=== PATIENT | female | born 1950 | race Caucasian/White ===

== ENCOUNTER → 2021-03-02 10:02 | Outpatient (CLI) | payer MEDICARE, OTHER, SELFPAY ==
--- NOTE | 2021-03-02 | DI.MG.S_ITS ---
BILATERAL DIGITAL SCREENING MAMMOGRAM 3D/2D WITH CAD: 03/02/2021 CLINICAL: Routine screening. Family history of breast cancer. Comparison is made to exams dated: 12/14/2019 mammogram, 11/27/2018 mammogram, 10/22/2018 mammogram, and 10/09/2017 mammogram - [facility]. The tissue of both breasts is predominantly fatty. Current study was also evaluated with a Computer Aided Detection (CAD) system. There are new grouped fine calcifications in the left breast middle depth lateral region seen on the craniocaudal view only. No other significant masses, calcifications, or other findings are seen in either breast. IMPRESSION: INCOMPLETE: NEEDS ADDITIONAL IMAGING EVALUATION The new grouped fine calcifications in the left breast are indeterminate. Magnification views are recommended. This exam was interpreted at Station ID: [id number]. NOTE: For mammograms, a report in lay terms will be sent to the patient. Approximately 15% of breast malignancies will not be visualized mammographically. In the management of a palpable breast mass, a negative mammogram must not discourage biopsy of a clinically suspicious lesion. Electronically Signed By: Marco La M.D., jr/ariadna:03/02/2021 12:29:14 letter sent: Additional Imaging Needed ACR BI-RADS Category 0: Incomplete 3340F
== END ==
PROVIDERS: PCP Nurse Practitioner Family; Referring Provider Nurse Practitioner Family; Visit Provider Nurse Practitioner Family
DX: Z12.31 Encounter for screening mammogram for malignant neoplasm of breast (principal); Z80.3 Family history of malignant neoplasm of breast
CPT/HCPCS: 77063; 77067

== ENCOUNTER → 2021-04-11 11:11 | Outpatient (CLI) | payer MEDICARE, OTHER, SELFPAY ==
--- NOTE | 2021-04-11 | DI.MG.S_ITS ---
UNILATERAL LEFT DIGITAL DIAGNOSTIC MAMMOGRAM 3D/2D WITH ADDITIONAL VIEWS: 04/11/2021 CLINICAL: Additional evaluation requested from prior study. Comparison is made to exams dated: 03/02/2021 mammogram - [facility], 12/14/2019 mammogram, and 11/27/2018 mammogram - [facility]. The tissue of left breast is predominantly fatty. There are stable benign grouped fine calcifications in the left breast middle depth lateral region seen on the craniocaudal view only. No other significant masses or calcifications are seen in the breast. IMPRESSION: BENIGN There is no mammographic evidence of malignancy. A 1 year screening mammogram is recommended. This exam was interpreted at Station ID: [id number]. NOTE: For mammograms, a report in lay terms will be sent to the patient. Approximately 15% of breast malignancies will not be visualized mammographically. In the management of a palpable breast mass, a negative mammogram must not discourage biopsy of a clinically suspicious lesion. Electronically Signed By: Marco La M.D., jr/ariadna:04/11/2021 14:57:29 letter sent: Normal Exam ACR BI-RADS Category 2: Benign Finding(s) 3342F
== END ==
PROVIDERS: PCP Nurse Practitioner Family; Referring Provider Nurse Practitioner Family; Visit Provider Nurse Practitioner Family
DX: R92.8 Other abnormal and inconclusive findings on diagnostic imaging of breast (principal)
CPT/HCPCS: 77065; G0279

== ENCOUNTER → 2022-04-03 09:46 | Outpatient (CLI) | payer MEDICARE, OTHER, SELFPAY ==
--- NOTE | 2022-04-03 11:13 | DI.MG.S_ITS ---
Patient Name: CAROL NAJERA date: 1950 Sex: F Attending Physician: Winston Indications: Date: 04/03/2022 11:03 At the request of: REGLA MORGAN Procedure: MM screening mammo BI NOTE: For mammograms, a report in lay terms will be sent to the patient. Approximately 15% of breast malignancies will not be visualized mammographically. In the management of a palpable breast mass, a negative mammogram must not discourage biopsy of a clinically suspicious lesion. Electronically Signed By: Norman alicia/ariadna:04/03/2022 14:39:59 letter sent: Normal Exam ACR BI-RADS Category 1: Negative [id number]
== END ==
PROVIDERS: PCP Nurse Practitioner Family; Referring Provider Nurse Practitioner Family; Visit Provider Nurse Practitioner Family
DX: Z12.31 Encounter for screening mammogram for malignant neoplasm of breast (principal); Z80.3 Family history of malignant neoplasm of breast
CPT/HCPCS: 77063; 77067

== ENCOUNTER → 2023-04-09 08:53 | Outpatient (CLI) | payer MEDICARE, OTHER, SELFPAY ==
--- NOTE | 2023-04-09 08:56 | DI.MG.S_ITS ---
BILATERAL DIGITAL SCREENING MAMMOGRAM 3D/2D WITH CAD: 04/09/2023 CLINICAL: Routine screening. Family history of breast cancer. Comparison is made to exams dated: 04/03/2022 mammogram, 03/02/2021 mammogram - [facility], and 12/14/2019 mammogram - [facility]. Both breasts are heterogeneously dense, which may obscure small masses (category c / 51-75% glandular tissue). Current study was also evaluated with a Computer Aided Detection (CAD) system. No significant masses, calcifications, or other findings are seen in either breast. There has been no significant interval change. IMPRESSION: NEGATIVE There is no mammographic evidence of malignancy. A 1 year screening mammogram is recommended. Based on the Tyrer Cuzick model (a risk assessment model) the patient's lifetime risk is 6.9% and her 10 year risk is 4.4%. According to the ACR, ACS, and NCCN guidelines, an annual breast MRI exam along with mammogram is recommended if the patient's lifetime risk is 20% or greater. This exam was interpreted at Station ID: [id number]. NOTE: For mammograms, a report in lay terms will be sent to the patient. Approximately 15% of breast malignancies will not be visualized mammographically. In the management of a palpable breast mass, a negative mammogram must not discourage biopsy of a clinically suspicious lesion. Electronically Signed By: Alyssa mayo/ariadna:04/09/2023 10:30:30 letter sent: Normal Exam ACR BI-RADS Category 1: Negative 3341F
--- NOTE | 2023-04-09 08:56 | DI.RAD.S_ITS ---
Bone Density Report Name: CAROL NAJERA Age: 72 Sex: Female Ethnicity: White Date of : 1950 Indication: postmenopausal; screening for osteoporosis; Referring Provider: REGLA MORGAN Study: Bone densitometry was performed. Exam Date: April 09, 2023 Accession number: [id number] Bone Density: Region BMD T-score Z-score Classification AP Spine(L1, L2) 1.255 2.5 4.5 Normal Femoral Neck (Left) 0.695 -1.4 0.4 Osteopenia Total Hip (Left) 0.782 -1.3 0.2 Osteopenia Femoral Neck (Right) 0.705 -1.3 0.5 Osteopenia Total Hip (Right) 0.790 -1.2 0.3 Osteopenia Total Hip Mean 0.786 -1.3 0.3 Osteopenia World Health Organization criteria for BMD impression classify patients as: Normal (T-score at or above -1.0), Osteopenia (T-score between -1.0 and -2.5), or Osteoporosis (T-score at or below -2.5). 10-year Fracture Risk(1): Major Osteoporotic Fracture 8.7% Hip Fracture 1.3% Reported Risk Factors: [place] (), Neck BMD=0.695, BMI=20.7 (1) FRAX(R) Version 3.08. Fracture probability calculated for an untreated patient. Fracture probability may be lower if the patient has received treatment. Impression: The patient has low bone mass, based on the Left Femoral Neck T-score. The patient has an estimated ten-year risk of hip fracture of 1.3% and an estimated ten-year risk of major fracture of 8.7%, based on the WHO FRAX algorithm. Discussion: BONE DENSITY IS LOW AT ONE OR MORE SKELETAL SITES. This patient's lowest T-score is low at one or more skeletal sites. It meets the World Health Organization's (WHO) criteria for low bone mass (T-score between -1.0 and -2.5). The patient's 10-year risk of fracture as calculated by FRAX is less than the threshold where pharmacological therapy is recommended by the National Osteoporosis Foundation (NOF). However, all treatment decisions require clinical judgment and consideration of individual patient factors, including patient preferences, comorbidities, previous drug use, risk factors not captured in the FRAX model (e.g., frailty, falls, vitamin D deficiency, increased bone turnover, interval significant decline in bone density) and possible under or overestimation of fracture risk by FRAX. The patient should follow a healthful lifestyle (good nutrition with adequate calcium and vitamin D, and appropriate weight-bearing exercise). Follow-Up: Consider repeating this study in 2 to 3 years to reassess this patient's status, or sooner if there is some new clinical indication. Reported by: MINERVA GRIGGS MD on 04/09/2023 9:50:00 AM.
--- NOTE | 2023-04-09 08:57 | DI.MRI.S_ITS ---
PROCEDURE: MR LUMBAR SPINE WO CON INDICATIONS: Routine screening; Radiculopathy, lumbar region TECHNIQUE: Noncontrast sagittal T1 spin echo and T2 fast echo, sagittal STIR, and T2 fast spin echo through the lumbar spine. In cases with scoliosis, additional coronal T2 fast spin echo may be performed. COMPARISON: [facility], MR, L-SPINE WITHOUT CONTRAST, 05/19/2011, 8:25. FINDINGS: Image quality: Excellent. Alignment and Curvature: There is trace retrolithesis of LT12-L1, L1 on L2, L2 on L3 Bone Marrow: Marrow is of normal overall signal. No acute vertebral body compression fractures. Spinal Cord: Conus medullaris terminates at the L1 level. Visualized cord demonstrates normal signal and size. Paraspinous Soft Tissues: No paravertebral masses. Discs: Moderate to severe multilevel disc dessication. T12-L1: Mild disc bulge without spinal stenosis. Moderate right and minimal left foraminal narrowing with facet and ligamentum flavum hypertrophy. Overall appearance is stable. L1-L2: Mild disc bulge with mild moderate spinal stenosis, slightly progressive. There is moderate bilateral foraminal narrowing with facet and ligamentum flavum hypertrophy, progressive. L2-L3: Mild disc bulge with minimal to mild spinal stenosis. Moderate bilateral foraminal narrowing, left greater than right with facet and ligamentum flavum hypertrophy. No interval change. L3-L4: Mild disc bulge with mild spinal stenosis. Severe left and moderate right foraminal narrowing with facet and ligamentum flavum hypertrophy, slightly progressive on the left. L4-L5: Mild disc bulge with moderate to severe spinal stenosis. Severe bilateral foraminal narrowing, right greater than left with mild compression of the exiting right L4 nerve roots, progressive compared to prior exam. Facet and ligamentum flavum hypertrophy are present. L5-S1: Mild disc bulge with moderate spinal stenosis. Severe bilateral foraminal narrowing with facet and ligamentum flavum hypertrophy. Mild compression of the exiting L5 nerve roots bilaterally. Mild interval progression. IMPRESSION: Multilevel degenerative changes with areas of interval progression as above. Multilevel spinal stenosis most severe at L4-5 secondary to disc bulge with contributing effect of facet/ligamentum flavum arthropathy. Multilevel foraminal narrowing severe at L4-5 and L5-S1 with nerve root compression secondary to facet/ligamentum flavum arthropathy. Dictated by: Karlie Jarquin M.D. on 04/09/2023 at 16:05 Approved by: Karlie Jarquin M.D. on 04/09/2023 at 16:15
== END ==
PROVIDERS: PCP Nurse Practitioner Family; Referring Provider Nurse Practitioner Family; Visit Provider Nurse Practitioner Family
DX: Z12.31 Encounter for screening mammogram for malignant neoplasm of breast (principal); R92.333 Mammographic heterogeneous density, bilateral breasts; M47.26 Other spondylosis with radiculopathy, lumbar region; Z80.3 Family history of malignant neoplasm of breast; M47.27 Other spondylosis with radiculopathy, lumbosacral region; M48.061 Spinal stenosis, lumbar region without neurogenic claudication; M48.07 Spinal stenosis, lumbosacral region; N31.9 Neuromuscular dysfunction of bladder, unspecified; M85.852 Other specified disorders of bone density and structure, left thigh; Z78.0 Asymptomatic menopausal state
CPT/HCPCS: 72148; 77063; 77067; 77080

== ENCOUNTER → 2023-05-07 14:27 | Outpatient (CLI) | payer MEDICARE, OTHER, SELFPAY ==
--- NOTE | 2023-05-07 | DI.CT.S_ITS ---
PROCEDURE: CT LUMBAR SPINE WO CON INDICATIONS: Radiculopathy, lumbar region TECHNIQUE: Noncontrast 3 mm thick sections acquired from the T12 level to the sacrum. Sagittal and coronal reformats were constructed. For radiation dose reduction, the following was used: automated exposure control. COMPARISON: None. FINDINGS: Image quality: Excellent. Bones: Slight rightward curvature, centered at L2. Grade 1 retrolisthesis of T12 on L1 and grade 1 anterolisthesis of L4 on L5. No acute vertebral body compression fractures. No suspicious lytic or blastic bony lesions. No pars defects. T12-L1: Disc osteophyte complex. Mild right and moderate left neural foraminal narrowing. Moderate facet arthrosis. L1-L2: Moderate disc height loss. Bilateral facet arthrosis. Ykbt-wl-agjjkofb bilateral neural foraminal narrowing. Disc bulge. L2-L3: Severe disc height loss with disc osteophyte complex. Moderate bilateral neural foraminal narrowing and facet arthrosis. L3-L4: Moderate to severe disc height loss, moderate bilateral facet arthrosis. Severe left and moderate right neural foraminal narrowing. L4-L5: Disc osteophyte complex, disc bulge with moderate to severe spinal stenosis. Severe bilateral neural foraminal narrowing. Severe facet hypertrophy and arthrosis. L5-S1: Disc bulge with moderate spinal canal stenosis and bilateral neural foraminal narrowing. Soft tissues: No retroperitoneal masses or hematomas. Visualized aorta is normal in caliber. IMPRESSION: Multilevel degenerative disc disease and facet arthrosis, as above. Findings correlate with MRI findings. Grade 1 anterolisthesis of L4 on L5 secondary to facet arthrosis. Grade 1 retrolisthesis of T12 on L1. Dictated by: Manan Lynch M.D. on 05/07/2023 at 16:28 Approved by: Manan Lynch M.D. on 05/07/2023 at 16:33
== END ==
LOC: CT 14:28
PROVIDERS: PCP Nurse Practitioner Family; Referring Provider Orthopaedic Surgery; Visit Provider Orthopaedic Surgery
DX: M51.16 Intervertebral disc disorders with radiculopathy, lumbar region (principal); M47.26 Other spondylosis with radiculopathy, lumbar region; M43.16 Spondylolisthesis, lumbar region; N31.8 Other neuromuscular dysfunction of bladder; M48.062 Spinal stenosis, lumbar region with neurogenic claudication
CPT/HCPCS: 72131

== ENCOUNTER → 2023-06-14 07:54 | Outpatient (CLI) | payer MEDICARE, OTHER, SELFPAY ==
--- NOTE | 2023-06-14 07:57 | DI.RAD.S_ITS ---
PROCEDURE: XR LUMBAR SPINE MIN 4V INDICATIONS: BACK PAIN TECHNIQUE: 5 views of the lumbar spine acquired, including flexion and extension views. COMPARISON: [facility], CT, CT LUMBAR SPINE WO CON, 05/07/2023, 14:53. [facility], MR, MR LUMBAR SPINE WO CON, 04/09/2023, 10:44. FINDINGS: Bones: 5 nonrib-bearing vertebrae are present. There is 4 mm anterolisthesis as well similar retrolisthesis of S1. 1-2 mm retrolisthesis L1 is present. Multilevel moderate to severe disc and narrowing most severe at L5-S1.. No vertebral body compression fractures. No suspicious bony lesions. Soft tissues: Overlying bowel gas pattern is normal. No suspicious soft tissue calcifications. Flexion/extension: There is decreased range of motion, with preserved normal alignment. IMPRESSION: Multilevel degenerative changes most severe at L5-S1. Dictated by: Karlie Jarquin M.D. on 06/14/2023 at 9:32 Approved by: Karlie Jarquin M.D. on 06/14/2023 at 9:33
== END ==
PROVIDERS: PCP Nurse Practitioner Family; Referring Provider Orthopaedic Surgery; Visit Provider Orthopaedic Surgery
DX: M47.26 Other spondylosis with radiculopathy, lumbar region (principal); M47.27 Other spondylosis with radiculopathy, lumbosacral region; Z98.890 Other specified postprocedural states
CPT/HCPCS: 72110

== ENCOUNTER → 2024-05-02 10:11 | Outpatient (CLI) | payer MEDICARE, OTHER, SELFPAY ==
--- NOTE | 2024-05-02 10:12 | DI.MRI.S_ITS ---
PROCEDURE: MR CERVICAL SPINE WO CON INDICATIONS: H/O excision of lamina of cervical vertebra, Screen TECHNIQUE: Noncontrast sagittal T1 spin echo and T2 fast spin echo, sagittal STIR, foraminal oblique sagittal T2 fast spin echo, and axial gradient echo or T2 fast spin echo through the cervical spine. COMPARISON: No prior relevant studies are available for review at the time of this dictation. FINDINGS: Image quality: Excellent. Alignment and Curvature: There is overall straightening of the normal cervical lordosis. Mild grade 1 anterolisthesis is seen at C4-C5 Bone Marrow: Marrow demonstrates normal overall signal. Spinal Cord: Mildly increased T2 weighted signal can be seen within the cervical cord, particularly at the C4-C5 level, as on series 5, image 11. Visualized spinal cord has normal size. No cerebellar tonsillar herniation. Paraspinous Soft Tissues: No paravertebral masses. Prevertebral soft tissues are normal in thickness. Postoperative changes are seen, with vertebral body fusion from C5 through C7. Body There has been removal of portions of the posterior elements. C2-C3: No significant abnormality is seen. C3-C4: Mild loss of disc height is seen. Loss of disc signal is seen. Moderate disc osteophyte complex is seen at this level, with a mild central disc osteophyte protrusion. Uncovertebral joint hypertrophy is seen at this level. There is quqv-ja-vzvlfwat right-sided and moderate to prominent left-sided facet hypertrophy. There is moderate to severe bilateral neural foraminal narrowing. Moderate central canal narrowing is seen. C4-C5: At least moderate loss of disc height and disc signal can be seen. Moderate disc osteophyte complex is seen, which is eccentric to the right. At least moderate facet hypertrophy is seen. Moderate to severe bilateral neural foraminal narrowing can be seen, left worse than right. Moderate to severe central canal narrowing is seen, with associated mass effect upon the ventral spinal cord. C5-C6: Vertebral body fusion is seen at this level. Moderate generalized disc osteophyte complex is seen. Mild to moderate facet hypertrophy can be seen. Moderate bilateral neural foraminal narrowing is seen. Mild central canal narrowing is seen. C6-C7: There is vertebral body fusion at this level. Moderate generalized disc osteophyte complex is seen. Mild to moderate facet hypertrophy can be seen. Moderate bilateral neural foraminal narrowing is seen. No central canal narrowing is seen. C7-T1: Mkit-to-ttutsbzh loss of disc height and disc signal can be seen. Moderate generalized disc osteophyte complex is seen. There is a central disc osteophyte protrusion. Mild to moderate facet hypertrophy is seen. There is at least moderate bilateral neural foraminal narrowing. Mild central canal narrowing is seen. IMPRESSION: Vertebral body fusion seen C5 through C7. Removal of portions of the posterior elements can be seen. Multiple levels of degenerative change can be seen, which are overall worst at the C4-C5 level. 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 Dictated by: Enmanuel Sarmiento M.D. on 05/02/2024 at 10:47 Approved by: Enmanuel Sarmiento M.D. on 05/02/2024 at 10:52
== END ==
PROVIDERS: PCP Nurse Practitioner Family; Referring Provider Orthopaedic Surgery; Visit Provider Orthopaedic Surgery
DX: M47.812 Spondylosis without myelopathy or radiculopathy, cervical region (principal); M48.02 Spinal stenosis, cervical region; M54.2 Cervicalgia; Z98.890 Other specified postprocedural states; Z98.1 Arthrodesis status
CPT/HCPCS: 72141

== ENCOUNTER → 2024-06-09 08:21 | Outpatient (CLI) | payer MEDICARE, OTHER, SELFPAY ==
--- NOTE | 2024-06-09 08:23 | DI.MG.S_ITS ---
MM screening mammo BI: 06/09/2024. BI-RADS: 1 CLINICAL: 73-year old female for bilateral screening mammogram. Tyrer-Cuzick lifetime risk of 4.0%. No personal or first-degree family history of breast cancer. PRIOR EXAMS 04/09/2023, 04/03/2022, 04/11/2021, 03/02/2021. MAMMOGRAPHY TECHNIQUE: 2D and 3D (tomosynthesis) digital mammographic views obtained, with additional images as needed for full coverage. Current study was also evaluated with a Computer Aided Detection (CAD) system. DENSITY C. The breasts are heterogeneously dense, which may obscure small masses. MAMMOGRAPHY FINDINGS Bilateral: No suspicious mass, asymmetry, microcalcification, or other abnormality seen. No significant change from comparison. IMPRESSION: * No evidence of malignancy. RECOMMENDATIONS Bilateral * Annual screening mammography. OVERALL ASSESSMENT CATEGORY BI-RADS-1: Negative. The [employer] recommends annual screening mammography beginning at age 40 for women with average risk of breast cancer. ELECTRONICALLY SIGNED: Siomara Rosales M.D. on 06/09/2024 at 06:34:11 PM PT Interpreting Station ID: [id number]
== END ==
PROVIDERS: PCP Nurse Practitioner Family; Referring Provider Nurse Practitioner Family; Visit Provider Nurse Practitioner Family
DX: Z12.31 Encounter for screening mammogram for malignant neoplasm of breast (principal); R92.333 Mammographic heterogeneous density, bilateral breasts
CPT/HCPCS: 77063; 77067

== ENCOUNTER → 2024-06-09 08:23 | Outpatient (CLI) | payer MEDICARE, OTHER, SELFPAY ==
--- NOTE | 2024-06-09 08:25 | DI.RAD.S_ITS ---
PROCEDURE: XR DEXA AXIAL SKELETON INDICATIONS: OSTEOPENIA COMPARISON: [facility], CR, XR DEXA AXIAL SKELETON, 04/09/2023, 9:34. FINDINGS: Lumbar Spine: Bone mineral density 1.210 (previously 1.255) g/cm2, T score 2.1 (previously 2.5). Left Femoral Neck: Bone mineral density 0.714 (previously 0.695) g/cm2, T score -1.2 (previously-1.4). Left Hip: Bone mineral density 0.769 (previously 0.782) g/cm2, T score -1.4 (previously-1.3). Fracture Risk Calculation (when applicable): 10-year fracture risk of a major osteoporotic fracture 8.5 percent and of a hip fracture 1.2 percent. (T score greater or equal to -1.0 to: NORMAL) (T score from -1.1 to -2.4: OSTEOPENIA) (T score less than or equal to -2.5: OSTEOPOROSIS) IMPRESSION: Osteopenia---recommend repeat DEXA in 2-3 years for reassessment. Follow-up guidelines as follows: Osteoporosis: Consider a repeat DEXA and Vertebral Fracture Assessment (VFA) exam in 2 years or sooner if medically necessary, to reassess this patient's status. Osteopenia: Consider a repeat DEXA in 2-3 years to reassess this patient's status, or if there is a new clinical indication. Normal: Consider a repeat DEXA in 5 years or sooner, or if there is a new clinical indication. All treatment decisions require clinical judgment and consideration of individual patient factors, including patient preferences, comorbidities, previous drug use, risk factors not captured in the FRAX model (e.g., frailty, falls, vitamin D deficiency, increased bone turnover, interval significant decline in bone density ) and possible under- or over-estimation of fracture risk by FRAX. In addition, the NOF Guide recommends that FDA-approved medical therapies be considered in postmenopausal women and men age >= 50 years with a: * Hip or vertebral (clinical or morphometric) fracture * T-score of <=-2.5 at the spine or hip * Ten-year fracture probability by FRAX of >= 3% for hip fracture or >=20% for major osteoporotic fracture. Dictated by: Micheal Bell M.D. on 06/09/2024 at 16:59 Approved by: Micheal Bell M.D. on 06/09/2024 at 17:01
== END ==
PROVIDERS: PCP Nurse Practitioner Family; Referring Provider Student in an Organized Health Care Education/Training Program; Visit Provider Student in an Organized Health Care Education/Training Program
DX: M85.89 Other specified disorders of bone density and structure, multiple sites (principal)
CPT/HCPCS: 77080

== ENCOUNTER → 2024-09-09 08:58 | Outpatient (CLI) | payer MEDICARE, OTHER, SELFPAY ==
--- NOTE | 2024-09-09 09:00 | DI.MRI.S_ITS ---
PROCEDURE: MR HEAD/BRAIN WO/W CON INDICATIONS: atypical facial pain TECHNIQUE: Noncontrast axial T1 spin echo, axial T2 fast spin echo, sagittal and axial FLAIR, coronal T2 fast spin echo, axial gradient echo, axial diffusion and ADC through the brain. After the administration of contrast, axial and coronal and sagittal T1 spin echo with fat saturation through the brain. COMPARISON: None. FINDINGS: Image quality: Excellent. CSF spaces: Basal cisterns are patent. No extra-axial fluid collections. Ventricles are normal in size and shape. Brain: No midline shift. No intracranial bleeds or masses. No abnormal intracranial enhancement. There is cerebral volume loss for age. There is periventricular white matter chronic small vessel ischemic change. The brainstem appears normal. Diffusion-weighted images demonstrate no acute infarct. No chronic ischemic insults. Normal intravascular flow voids are present. Skull and face: Calvarial marrow is normal in signal. Orbits appear normal. Sinuses: Sinuses and mastoids appear clear. IMPRESSION: 1. No acute intracranial process. 2. Mild to moderate atrophy and chronic microvascular ischemic changes. Dictated by: Karlie Jarquin M.D. on 09/09/2024 at 13:43 Approved by: Karlie Jarquin M.D. on 09/09/2024 at 13:44
== END ==
PROVIDERS: PCP Nurse Practitioner Family; Visit Provider Nurse Practitioner Family
DX: G50.1 Atypical facial pain (principal); R68.84 Jaw pain
CPT/HCPCS: 70553; A9579